=== PATIENT | female | born 1965 | race Two or more races ===

== ENCOUNTER 2023-08-27 08:30 | Inpatient (IN) | payer OTHER ==
[~2023-08-27] VITALS: Ht 165.1 cm; Wt 93.4 kg
[2023-08-29] MEDS ORDERED: SYNTHROID200 MCG PO (10:17)
[2023-08-29] MEDS ORDERED: JANUMET XR 50-1 EAC1 PO (10:18)
[2023-08-29] MEDS ORDERED: LANTUS SOL100 UNIT/1 (10:18)
[2023-08-29] MEDS ORDERED: VALSARTAN-HCTZ1 EAC1 PO (10:19)
[2023-08-29] MEDS ORDERED: CARVEDILOL6.25 MG (10:19)
[2023-09-02 14:41] LABS: HEMATOCRIT 33.7 % (36.0-45.00); HEMOGLOBIN 10.8 g/dL (12.0-15.00); MEAN CELL VOLUME 75.7 fL (80.00-100.00); MEAN CORPUSCULAR HEMOGLOBIN 24.3 pg (27.00-32.0); PLATELET COUNT 317 K/uL (150-450); RED BLOOD COUNT 4.45 M/uL (4.00-6.00); RED CELL DISTRIBUTION WIDTH 13.8 % (11.5-14.5)
[2023-09-03 07:14] LABS: ALBUMIN 2.9 gm/dL (3.4-5.0); CALCIUM 8.6 mg/dL (8.5-10.1); CREATININE SERUM 0.53 mg/dL (0.55-1.02); GFR 118.9; HEMATOCRIT 28.3 % (36.0-45.00); HEMOGLOBIN 9.6 g/dL (12.0-15.00); MEAN CELL VOLUME 74.5 fL (80.00-100.00); MEAN CORPUSCULAR HEMOGLOBIN 25.3 pg (27.00-32.0); PLATELET COUNT 271 K/uL (150-450); POTASSIUM 4.19 mEq/L (3.5-5.1)
== END 2023-09-04 12:58 | disposition home or self-care (01) | DRG 330 ==
LOC: SURG 09-02 04:45 → O/R 09-02 04:45 → SURH 09-02 07:00 → SURG 09-02 13:03 → SURH 09-02 13:03 → SURG 09-04 12:58
PROVIDERS: ADMIT Colon & Rectal Surgery; ATTEND Colon & Rectal Surgery
PROC: 0DBP4ZZ Excision of Rectum, Percutaneous Endoscopic Approach (ICD-10-PCS; 2023-09-02)
PROC: 8E0W4CZ Robotic Assisted Procedure of Trunk Region, Percutaneous Endoscopic Approach (ICD-10-PCS; 2023-09-02)
PROC: 0DJD8ZZ Inspection of Lower Intestinal Tract, Via Natural or Artificial Opening Endoscopic (ICD-10-PCS; 2023-09-02)
PROC: 0DTN4ZZ Resection of Sigmoid Colon, Percutaneous Endoscopic Approach (ICD-10-PCS; principal; 2023-09-02 07:00)
DX: K57.30 Diverticulosis of large intestine without perforation or abscess without bleeding (principal); I97.52 Accidental puncture and laceration of a circulatory system organ or structure during other procedure; K56.50 Intestinal adhesions [bands], unspecified as to partial versus complete obstruction; K58.2 Mixed irritable bowel syndrome; I10 Essential (primary) hypertension; E11.9 Type 2 diabetes mellitus without complications; E03.9 Hypothyroidism, unspecified; Z79.4 Long term (current) use of insulin
CPT/HCPCS: 44207; 44213; 45300; S2900

== ENCOUNTER 2023-11-20 15:34 | Inpatient (IN) | payer OTHER ==
[~2023-11-20] VITALS: Ht 165.1 cm; Wt 83.0 kg
[~2023-11-20 15:34] MED LIST: CARVEDILOL6.25 MG; JANUMET XR 50-1 EAC1 PO; LANTUS SOL100 UNIT/1; SYNTHROID200 MCG PO; VALSARTAN-HCTZ1 EAC1 PO
[2023-11-20] MEDS ORDERED: COZAAR25 MG (15:55)
[2023-11-20 19:04] LABS: ABG PO2 274.5 mmHg (80-100); ABG pCO2 49.9 mmHg (35-45); BASE EXCESS 6.8 mmol/l; BICARBONATE 20.9 mmol/l (23-25); SaO2 99.8 %; Tco2 22.4 mmol/l; allen test SATISFACTORY; o2 100 %; puncture site RADIAL LEFT
[2023-11-20 23:53] LABS: HEMATOCRIT 32.9 % (36.0-45.00); MEAN CELL VOLUME 70.5 fL (80.00-100.00); MEAN CORPUSCULAR HGB CONC 32.2 g/dl (32.0-36.0); PLATELET COUNT 523 K/uL (150-450); RED BLOOD COUNT 4.67 M/uL (4.00-6.00); RED CELL DISTRIBUTION WIDTH 15.6 % (11.5-14.5)
[2023-11-20 23:54] LABS: HEMOGLOBIN 10.6 g/dL (12.0-15.00); MEAN CORPUSCULAR HEMOGLOBIN 22.6 pg (27.00-32.0)
[2023-11-21 00:13] LABS: ALBUMIN 3.2 gm/dL (3.4-5.0); BILIRUBIN TOTAL 0.39 mg/dL (0.3-1.2); CALCIUM 9.2 mg/dL (8.5-10.1); GFR 57.15; GLOBULINA 2.8 G/DL (2.4-3.5); POTASSIUM 5.44 mEq/L (3.5-5.1)
[2023-11-21 05:58] LABS: HEMATOCRIT 28.5 % (36.0-45.00); HEMOGLOBIN 9.2 g/dL (12.0-15.00); MEAN CELL VOLUME 70.2 fL (80.00-100.00); MEAN CORPUSCULAR HEMOGLOBIN 22.7 pg (27.00-32.0); MEAN CORPUSCULAR HGB CONC 32.3 g/dl (32.0-36.0); PLATELET COUNT 397 K/uL (150-450); RED BLOOD COUNT 4.06 M/uL (4.00-6.00); RED CELL DISTRIBUTION WIDTH 15.8 % (11.5-14.5)
[2023-11-21 06:44] LABS: ALBUMIN 2.7 gm/dL (3.4-5.0); CALCIUM 8.6 mg/dL (8.5-10.1); CREATININE SERUM 0.98 mg/dL (0.55-1.02); GFR 58.49; MAGNESIUM 1.7 mg/dL (1.8-2.4); PHOSPHOROUS 3.7 mg/dL (2.5-4.9); POTASSIUM 4.43 mEq/L (3.5-5.1)
[2023-11-21 16:57] LABS: HEMATOCRIT 25.8 % (36.0-45.00); MEAN CELL VOLUME 70.6 fL (80.00-100.00); PLATELET COUNT 344 K/uL (150-450); RED BLOOD COUNT 3.65 M/uL (4.00-6.00); RED CELL DISTRIBUTION WIDTH 15.9 % (11.5-14.5)
[2023-11-21 16:58] LABS: MEAN CORPUSCULAR HEMOGLOBIN 22.4 pg (27.00-32.0)
[2023-11-21 16:59] LABS: HEMOGLOBIN 8.2 g/dL (12.0-15.00)
[2023-11-23 07:57] LABS: HEMOGLOBIN 10.4 g/dL (12.0-15.00); MEAN CELL VOLUME 73.3 fL (80.00-100.00); MEAN CORPUSCULAR HEMOGLOBIN 24.5 pg (27.00-32.0); MEAN CORPUSCULAR HGB CONC 33.4 g/dl (32.0-36.0); PLATELET COUNT 304 K/uL (150-450); RED BLOOD COUNT 4.23 M/uL (4.00-6.00); RED CELL DISTRIBUTION WIDTH 18.6 % (11.5-14.5)
[2023-11-23 10:13] LABS: HEMATOCRIT 30.5 % (36.0-45.00); HEMOGLOBIN 10.1 g/dL (12.0-15.00); MEAN CORPUSCULAR HGB CONC 33.3 g/dl (32.0-36.0); PLATELET COUNT 302 K/uL (150-450); RED BLOOD COUNT 4.06 M/uL (4.00-6.00); RED CELL DISTRIBUTION WIDTH 18.8 % (11.5-14.5)
[2023-11-23 11:32] LABS: CALCIUM 8.4 mg/dL (8.5-10.1); CREATININE SERUM 0.43 mg/dL (0.55-1.02); GFR 151.35; POTASSIUM 3.27 mEq/L (3.5-5.1)
[2023-11-24 15:45] LABS: CALCIUM 8.6 mg/dL (8.5-10.1); CHOL HDL RATIO 5.2 (0-5.0); CREATININE SERUM 0.3 mg/dL (0.55-1.02); GFR 229.29; POTASSIUM 3.49 mEq/L (3.5-5.1)
[2023-11-25 07:40] LABS: CALCIUM 8.4 mg/dL (8.5-10.1); CREATININE SERUM 0.3 mg/dL (0.55-1.02); GFR 229.29; POTASSIUM 3.57 mEq/L (3.5-5.1)
[2023-11-25 07:48] LABS: TSH 6.86 uIU/mL (0.358-3.74)
[2023-11-26 06:51] LABS: HEMATOCRIT 27.3 % (36.0-45.00); HEMOGLOBIN 9.3 g/dL (12.0-15.00); MEAN CORPUSCULAR HEMOGLOBIN 25.2 pg (27.00-32.0); MEAN CORPUSCULAR HGB CONC 34.1 g/dl (32.0-36.0); PLATELET COUNT 335 K/uL (150-450); RED BLOOD COUNT 3.68 M/uL (4.00-6.00); RED CELL DISTRIBUTION WIDTH 18.5 % (11.5-14.5)
[2023-11-26 07:29] LABS: ALBUMIN 2.4 gm/dL (3.4-5.0); BILIRUBIN TOTAL 0.34 mg/dL (0.3-1.2); CALCIUM 8.4 mg/dL (8.5-10.1); CREATININE SERUM 0.4 mg/dL (0.55-1.02); GFR 164.52; POTASSIUM 3.1 mEq/L (3.5-5.1); TOTAL PROTEIN 5.4 gm/dL (6.4-8.2)
[2023-11-28 07:06] LABS: HEMATOCRIT 26.7 % (36.0-45.00); HEMOGLOBIN 9.1 g/dL (12.0-15.00); MEAN CORPUSCULAR HEMOGLOBIN 24.8 pg (27.00-32.0); PLATELET COUNT 360 K/uL (150-450); RED BLOOD COUNT 3.66 M/uL (4.00-6.00); RED CELL DISTRIBUTION WIDTH 18.6 % (11.5-14.5)
[2023-11-28 07:19] LABS: ALBUMIN 2.5 gm/dL (3.4-5.0); BILIRUBIN TOTAL 0.27 mg/dL (0.3-1.2); CALCIUM 8.7 mg/dL (8.5-10.1); CREATININE SERUM 0.43 mg/dL (0.55-1.02); GFR 151.35; GLOBULINA 3.1 G/DL (2.4-3.5); TOTAL PROTEIN 5.6 gm/dL (6.4-8.2)
[2023-11-28 07:52] LABS: POTASSIUM 2.7 mEq/L (3.5-5.1)
[2023-11-29 12:25] LABS: CALCIUM 8.8 mg/dL (8.5-10.1); CREATININE SERUM 0.52 mg/dL (0.55-1.02); GFR 121.54; MAGNESIUM 1.8 mg/dL (1.8-2.4); PHOSPHOROUS 2.5 mg/dL (2.5-4.9); POTASSIUM 3.01 mEq/L (3.5-5.1)
[2023-11-30] MEDS ORDERED: ACETAMINOPHEN500 M2 PO (08:51)
[2023-11-30] MEDS ORDERED: NEURONTIN300 MG PO (08:51)
[2023-11-30] MEDS ORDERED: PRILOSEC OTC20 MG PO (08:51)
== END 2023-11-30 11:56 | disposition home or self-care (01) | DRG 327 ==
LOC: ER 15:34 → O/R 16:43 → SEC-K 16:43 → SURH 16:43 → O/R 11-21 00:06 → ICU 11-21 18:08 → SURH 11-23 21:17
PROVIDERS: Internal Medicine; Internal Medicine Endocrinology, Diabetes & Metabolism; Internal Medicine Geriatric Medicine; Student in an Organized Health Care Education/Training Program; Surgery; ADMIT Colon & Rectal Surgery; ATTEND Colon & Rectal Surgery
PROC: 0DQ90ZZ Repair Duodenum, Open Approach (ICD-10-PCS; principal; 2023-11-21)
PROC: 0DQV0ZZ Repair Mesentery, Open Approach (ICD-10-PCS; 2023-11-21)
PROC: 0DNW0ZZ Release Peritoneum, Open Approach (ICD-10-PCS; 2023-11-21)
PROC: 0DBU0ZZ Excision of Omentum, Open Approach (ICD-10-PCS; 2023-11-21)
PROC: 0DJD0ZZ Inspection of Lower Intestinal Tract, Open Approach (ICD-10-PCS; 2023-11-21)
PROC: B24BZZZ Ultrasonography of Heart with Aorta (ICD-10-PCS; 2023-11-21)
PROC: 02HV33Z Insertion of Infusion Device into Superior Vena Cava, Percutaneous Approach (ICD-10-PCS; 2023-11-23)
PROC: 4A12X4Z Monitoring of Cardiac Electrical Activity, External Approach (ICD-10-PCS; 2023-11-23)
DX: K56.699 Other intestinal obstruction unspecified as to partial versus complete obstruction (principal); K45.0 Other specified abdominal hernia with obstruction, without gangrene; K56.2 Volvulus; R59.0 Localized enlarged lymph nodes; I10 Essential (primary) hypertension; E03.9 Hypothyroidism, unspecified; D64.9 Anemia, unspecified; E11.65 Type 2 diabetes mellitus with hyperglycemia; Z79.4 Long term (current) use of insulin; N73.6 Female pelvic peritoneal adhesions (postinfective); N99.4 Postprocedural pelvic peritoneal adhesions